=== PATIENT | male | born 1970 | race Hispanic/Latino ===

== ENCOUNTER → 2019-10-11 | Outpatient (CLI) | payer SELFPAY ==
[~2019-10-11] MED LIST: GABAPENTIN300 MG PO
--- NOTE | 2019-10-11 13:58 | Diagnostic Imaging Report ---
Examination: MRI SPINE LUMBAR WO CONTRAST History: Right sided numbness Comparison studies: None Technique: Sagittal, coronal and axial T2 , sagittal T1 and STIR; axial spin density oblique. Findings: Number of lumbar vertebral bodies: Five. Alignment: Normal lordosis. No scoliosis. Soft tissues: A 4.5cm T2 hyperintense rounded lesion identified in the upper pole of the right kidney. Posterior paraspinal soft tissues and muscles: No abnormality. Lower thoracic cord: Normal in signal and morphology. The tip of the conus is at L1. Cauda equina: No masses. No arachnoiditis. Vertebrae: No fractures, infection or neoplasm. A 2.4 cm T1 and T2 hyperintense and STIR hypointense lesion is identified in the posterior aspect of L5, representing a hemangioma. There is no expansion of the vertebral body or disruption of the adjacent endplates or cortex. Degenerative changes: L1-L2 through L5-S1: No abnormalities. IMPRESSION: No disc herniation or bulge or canal or foraminal stenosis. Incidental and benign hemangioma of L5. Signed by: Dr. Tracy Mandel M.D. on 10/11/2019 1:55 PM
== END ==
LOC: MRI 11:07
PROVIDERS: ATTEND Specialist
DX: M54.31 Sciatica, right side (principal); D18.09 Hemangioma of other sites
CPT/HCPCS: 72148

== ENCOUNTER → 2019-10-31 | Day surgery (SDC) | payer BC ==
[~2019-10-31] MED LIST changes: +DEXAMETHASONE SOD PHOS 10 MG/1 ML VIAL ONE; +FENTANYL CITRATE/PF 100MCG/2 ML INJ ONE; +IOPAMIDOL 200 MG/ML 20 ML VIAL IT ONE; +LIDOCAINE HCL 1% 30ML-PF VIAL ONE; +MIDAZOLAM HCL 2 MG/2 ML VIAL ONE; +PROPOFOL IV EMULSION 10 MG/ML 20 ML VIAL ONE
--- OUTSIDE RECORDS SUMMARY | 2019-10-31 05:53 | XMS REPORT ---
Author Author [facility] Address Unknown Phone Unavailable Care Team Providers Care Information Broker Name Role Phone BELKYS PERDUE Unavailable Unavailable Problems This patient has no known problems. Allergies, Adverse Reactions, Alerts This patient has no known allergies or adverse reactions. Medications This patient has no known medications. Results Test Description Test Time Test Comments Text Results Atomic Results Result Comments MRI SPINE LUMBAR WO 2019-10-11 13:50:00 [facility] [address] [address] Patient Name: BART HOFFMAN MR #: [id number] : 1970 Age/Sex: 49/M Req #: [id number] [facility] Physician: Ordered by: BELKYS PERDUE MD Report #: [id number] Location: MRI Room/Bed: Procedure: [id number] MRI/MRI SPINE LUMBAR WO Exam Date: Exam Time: REPORT STATUS: Signed Examination: MRI SPINE LUMBAR WO CONTRAST History: Right sided n umbness Comparison studies: None Technique: Sagittal, coronal and axial T2 , sagittal T1 and STIR; axial spin density oblique. Findings: Number of lumbar vertebral bodies: Five. Alignment: Normal lordosis. No scoliosis. Soft tissues: A 4.5cm T2 hyperintense rounded lesion identified in the upper pole of the right kidney. Posterior paraspinal soft tissues and muscles: No abnormality. Lower thoracic cord: Normal in signal and morphology. The tip of the conus is at L1. Cauda equina: No masses. No arachnoiditis. Vertebrae: No fractures, infection or neoplasm. A 2.4 cm T1 and T2 hyperintense and STIR hypointense lesion is identified in the posterior aspect of L5, representing a hemangioma. There is no expansion of the vertebral body or disruption of the adjacent endplates or cortex. Degenerative changes: L1-L2 through L5-S1: No abnormalities. IMPRESSION: No disc herniation or bulge or canal or foraminal stenosis. Incidental and benign hemangioma of L5. Signed by: Dr. Tracy Mandel M.D. on 10/11/2019 1:55 PM Dictated By: TRACY QUINTERO MD [id number] Transcribed By: ALEJANDRO on 10/11/19 1358 COPY TO: BELKYS PERDUE MD
[2019-10-31 07:30] VITALS: BP 122/97
== END | disposition home or self-care (01) ==
LOC: OR 05:49
PROVIDERS: ATTEND Physical Medicine & Rehabilitation Pain Medicine
DX: M54.16 Radiculopathy, lumbar region (principal)
CPT/HCPCS: 64483; 93005; J1100; J2001; J2250; J2704; J3010; Q9967; 77003

== ENCOUNTER → 2019-11-05 | Outpatient (CLI) | payer SELFPAY ==
[~2019-11-05] MED LIST changes: -DEXAMETHASONE SOD PHOS 10 MG/1 ML VIAL ONE; -FENTANYL CITRATE/PF 100MCG/2 ML INJ ONE; -IOPAMIDOL 200 MG/ML 20 ML VIAL IT ONE; -LIDOCAINE HCL 1% 30ML-PF VIAL ONE; -MIDAZOLAM HCL 2 MG/2 ML VIAL ONE; -PROPOFOL IV EMULSION 10 MG/ML 20 ML VIAL ONE
--- NOTE | 2019-11-05 09:58 | Diagnostic Imaging Report ---
Examination: MRI SPINE LUMBAR WO CONTRAST History: Right foot numbness and drop. Comparison studies: MRI lumbar spine dated 10/11/2019. Technique: Sagittal, coronal and axial T2 , sagittal T1 and STIR; axial spin density oblique. Findings: Number of lumbar vertebral bodies: Five. Alignment: Normal lordosis. No scoliosis. Soft tissues: A 4.5cm T2 hyperintense rounded lesion identified in the upper pole of the right kidney. Posterior paraspinal soft tissues and muscles: No abnormality. Lower thoracic cord: Normal in signal and morphology. The tip of the conus is at L1. Cauda equina: No masses. No arachnoiditis. Vertebrae: No fractures, infection or neoplasm. A 2.4 cm T1 and T2 hyperintense and STIR hypointense lesion is identified in the posterior aspect of L5, representing a hemangioma. There is no expansion of the vertebral body or disruption of the adjacent endplates or cortex. Degenerative changes: L1-L2 through L4-L5: No abnormalities. L5-S1: Increased conspicuity of small right foraminal disc protrusion that contacts the exiting right L5 nerve root, which shows new mild edema. There is a new associated annular fissure. No foraminal or canal stenosis. IMPRESSION: Increased conspicuity of right foraminal disc protrusion at L5-S1 and contact of the newly edematous exiting right L5 nerve root when compared to prior lumbar spine MRI 10/11/2019. New associated annular fissure of the right foraminal disc. No foraminal or canal stenosis. Incidental and benign hemangioma of L5. Signed by: Dr. Tracy Mandel M.D. on 11/05/2019 9:55 AM
== END ==
LOC: MRI 08:57
DX: M54.31 Sciatica, right side (principal); M54.16 Radiculopathy, lumbar region
CPT/HCPCS: 72148

== ENCOUNTER → 2020-07-16 | Outpatient (CLI) | payer OTHER ==
[~2020-07-16] MED LIST changes: +COVID-19 VACC, MRNA(MODERNA)/PF 100 MCG/0.5 ML VIAL IM ONE
== END ==
LOC: VACCPMC 16:00
DX: Z23 Encounter for immunization (principal); Z20.828 Contact with and (suspected) exposure to other viral communicable diseases

== ENCOUNTER → 2020-08-22 | Outpatient (CLI) | payer OTHER | END | DRG 951 | LOC: VACCPMC 09:05 | DX: Z23 Encounter for immunization (principal); Z20.822 Contact with and (suspected) exposure to COVID-19 | CPT/HCPCS: 0012A; 91301 ==

== ENCOUNTER → 2021-05-15 | Outpatient (CLI) | payer OTHER, BC | END | disposition home or self-care (01) | LOC: VACCPMC 09:00 | DX: Z23 Encounter for immunization (principal); Z20.822 Contact with and (suspected) exposure to COVID-19 | CPT/HCPCS: 91301 ==

== ENCOUNTER → 2022-11-11 | Outpatient (CLI) | payer OTHER ==
[~2022-11-11] MED LIST changes: -COVID-19 VACC, MRNA(MODERNA)/PF 100 MCG/0.5 ML VIAL IM ONE; +IOPAMIDOL 370 MG/ML 100 ML INFUS..BTL INJ ONE; +METOPROLOL TARTRATE 25 MG TAB ONE; +METOPROLOL TARTRATE INJ 1 MG/ML VIAL ONE; +NITROGLYCERIN 0.4 MG SUBL ONE; +SODIUM CHLORIDE 0.9% 100 ML ONE
== END ==
LOC: CT 07:46
PROVIDERS: ATTEND Internal Medicine
DX: Z00.00 Encounter for general adult medical examination without abnormal findings (principal); R07.9 Chest pain, unspecified; E78.2 Mixed hyperlipidemia
CPT/HCPCS: 0502T; 0503T; 75574; J7050; Q9967